=== PATIENT | female | born 1995 | race African-American/Black ===

== ENCOUNTER 2023-03-19 07:30 | Emergency (ER) | payer SELFPAY ==
[2023-03-19] MEDS: Ketorolac 30 MG/ML SDV IM ONE (08:09)
== END 2023-03-19 09:05 | disposition home or self-care (01) ==
LOC: FB.ED 07:30
DX: S53.402A Unspecified sprain of left elbow, initial encounter (principal); S73.102A Unspecified sprain of left hip, initial encounter; Z88.8 Allergy status to other drugs, medicaments and biological substances; W18.30XA Fall on same level, unspecified, initial encounter
CPT/HCPCS: 73080-LT; 73090-LT; 73501-LT; 96372; 99283; J1885